=== PATIENT | female | born 1975 | race Caucasian/White ===

== ENCOUNTER → 2021-08-06 | Outpatient (CLI) | payer BC ==
[~2021-08-06] VITALS: Ht 157.5 cm; Wt 83.0 kg
[~2021-08-06] MED LIST: CITALOPRAM HBR20 MG PO; LISINOPRIL-HCT1 EAC2 PO; NORCO 7.5-3251 EACH PO
== END ==
LOC: OPSV 09:10
DX: D50.9 Iron deficiency anemia, unspecified (principal); R06.02 Shortness of breath; T50.905A Adverse effect of unspecified drugs, medicaments and biological substances, initial encounter
CPT/HCPCS: 96365; J1756

== ENCOUNTER → 2021-08-08 | Outpatient (CLI) | payer BC | LOC: OPSV 08:32 | DX: D50.9 Iron deficiency anemia, unspecified (principal); R53.83 Other fatigue; R06.02 Shortness of breath; Z78.9 Other specified health status | CPT/HCPCS: 96365; J1756 ==

== ENCOUNTER → 2021-08-13 | Outpatient (CLI) | payer BC ==
[~2021-08-13] VITALS: Ht 157.5 cm; Wt 83.0 kg
== END ==
LOC: OPSV 08-06 09:00
DX: D50.9 Iron deficiency anemia, unspecified (principal); R06.02 Shortness of breath; R53.83 Other fatigue; Z78.9 Other specified health status
CPT/HCPCS: 96365; J1756